=== PATIENT | female | born 1935 | race African-American/Black ===

== ENCOUNTER → 2016-07-22 | Outpatient (CLI) | payer MEDICARE, OTHER ==
[~2016-07-22] VITALS: Ht 154.9 cm; Wt 90.9 kg
[~2016-07-22] MED LIST: ACIDOPHILIS PO; ACIDOPHILUS PO; ACULAR 3 ML3 ML OU; ALEVE 220MG220 MG PO; BUMETANIDE0.5 MG PO; COMPLETE SENIOR1 TA1 PO; DUREZOL 5 ML5 ML OU; FERROUS SU325 MG/TAB PO; FISH OIL1000 MG PO; FOLIC ACID 40400 MCG PO; GLUCOPHAGE500 MG/TAB PO; GLYBURIDE2.5 MG PO; JANUVIA25 MG PO; LASIX 20MG TABL20 MG PO; LOPRESSOR100 MG PO; METFORMIN500 MG PO; NEXIUM 40MG40 MG PO; NORVASC 10MG10 MG PO; PHENERGAN W/CO120 M1 PO; RESOURCE BENEFI1 PDR PO; VITAMIN C BUFF500 MG PO
[2016-07-22 09:28] VITALS: BP 154/73; PULSE 64
[2016-07-22 10:20] VITALS: BP 188/73; PULSE 63
== END ==
LOC: COL.RAD 09:00
DX: M48.06 Spinal stenosis, lumbar region (principal); M46.86 Other specified inflammatory spondylopathies, lumbar region
CPT/HCPCS: J3301

== ENCOUNTER → 2016-11-19 | Outpatient (CLI) | payer MEDICARE, OTHER | LOC: COL.RAD 08:17 | DX: K21.9 Gastro-esophageal reflux disease without esophagitis (principal) ==

== ENCOUNTER → 2017-01-07 | Outpatient (CLI) | payer MEDICARE, OTHER | LOC: COL.RAD 08:27 | DX: M54.40 Lumbago with sciatica, unspecified side (principal) | CPT/HCPCS: J3301 ==

== ENCOUNTER → 2017-04-07 | Outpatient (CLI) | payer MEDICARE, OTHER | LOC: MC.RAD 07:54 | DX: Z12.31 Encounter for screening mammogram for malignant neoplasm of breast (principal) ==

== ENCOUNTER 2017-07-28 07:24 | Outpatient (CLI) | payer MEDICARE, OTHER ==
[~2017-07-28] VITALS: Ht 154.9 cm; Wt 90.9 kg
[2017-07-28] VITALS (17 sets, daily range): BP systolic 111–155; BP diastolic 60–83; PULSE 66–89
[~2017-07-28 07:24] MED LIST changes: +ALIGN PO; +FIBERCON PO; +MULTIVITAMIN SEN PO; -RESOURCE BENEFI1 PDR PO
== END 2017-07-28 15:00 | disposition home or self-care (01) ==
LOC: COL.RAD 07:24
DX: R91.8 Other nonspecific abnormal finding of lung field (principal); J95.811 Postprocedural pneumothorax
CPT/HCPCS: 25581

== ENCOUNTER → 2017-08-31 | Outpatient (CLI) | payer MEDICARE, OTHER | LOC: COL.PUL 09:25 | DX: R10.11 Right upper quadrant pain (principal); C34.2 Malignant neoplasm of middle lobe, bronchus or lung; I10 Essential (primary) hypertension ==

== ENCOUNTER 2017-09-03 10:42 | Day surgery (SDC) | payer MEDICARE, OTHER ==
[~2017-09-03] VITALS: Ht 154.9 cm; Wt 93.4 kg
[~2017-09-03 10:42] MED LIST changes: -GLUCOPHAGE500 MG/TAB PO; +GLUCOPHAGE850 MG/TAB PO; +JANUVIA 100MG100 MG PO; -JANUVIA25 MG PO
[2017-09-03] MEDS ORDERED: TEMOVATE0.05% TP (11:07)
[2017-09-03] MEDS ORDERED: ACUVAIL 0.4 ML0.4 ML OP (11:08)
[2017-09-03 11:25] VITALS: BP 143/58; PULSE 64; TEMP 97.9
[2017-09-03 13:25] VITALS: BP 127/60; PULSE 78; TEMP 98.2
[2017-09-03 13:40] VITALS: BP 133/54; PULSE 69
[2017-09-03 13:55] VITALS: BP 114/55; PULSE 72
[2017-09-03 14:10] VITALS: BP 115/52; PULSE 73
[2017-09-03 15:02] VITALS: BP 124/65; PULSE 80
== END 2017-09-03 14:25 | disposition home or self-care (01) ==
LOC: SDCO 10:42
DX: C34.2 Malignant neoplasm of middle lobe, bronchus or lung (principal); E66.9 Obesity, unspecified; E78.5 Hyperlipidemia, unspecified; I25.10 Atherosclerotic heart disease of native coronary artery without angina pectoris; G47.33 Obstructive sleep apnea (adult) (pediatric); M19.90 Unspecified osteoarthritis, unspecified site; I12.9 Hypertensive chronic kidney disease with stage 1 through stage 4 chronic kidney disease, or unspecified chronic kidney disease; E11.22 Type 2 diabetes mellitus with diabetic chronic kidney disease; N18.9 Chronic kidney disease, unspecified; K21.9 Gastro-esophageal reflux disease without esophagitis; Z90.710 Acquired absence of both cervix and uterus; Z90.49 Acquired absence of other specified parts of digestive tract; Z79.84 Long term (current) use of oral hypoglycemic drugs; Z88.3 Allergy status to other anti-infective agents; Z96.653 Presence of artificial knee joint, bilateral; Z87.891 Personal history of nicotine dependence
CPT/HCPCS: J2704; J7030

== ENCOUNTER → 2018-04-21 | Outpatient (CLI) | payer MEDICARE, OTHER ==
[~2018-04-21] MED LIST changes: +ACUVAIL 0.4 ML0.4 ML OP; +TEMOVATE0.05% TP
== END ==
LOC: MC.RAD 08:53
DX: Z12.31 Encounter for screening mammogram for malignant neoplasm of breast (principal)

== ENCOUNTER → 2019-05-16 | Outpatient (CLI) | payer MEDICARE, OTHER | LOC: MC.RAD 08:21 | DX: Z12.31 Encounter for screening mammogram for malignant neoplasm of breast (principal); N64.89 Other specified disorders of breast ==

== ENCOUNTER → 2019-05-22 | Outpatient (CLI) | payer MEDICARE, OTHER | LOC: MC.RAD 09:35 | DX: N64.89 Other specified disorders of breast (principal) ==

== ENCOUNTER → 2019-12-05 | Outpatient (CLI) | payer MEDICARE, OTHER | LOC: MC.RAD 12:49 | DX: N63.21 Unspecified lump in the left breast, upper outer quadrant (principal) | CPT/HCPCS: G0279 ==

== ENCOUNTER → 2020-05-21 | Outpatient (CLI) | payer MEDICARE, OTHER | LOC: MC.RAD 10:15 | DX: Z12.31 Encounter for screening mammogram for malignant neoplasm of breast (principal) ==

== ENCOUNTER → 2020-06-20 | Outpatient (CLI) | payer MEDICARE, OTHER ==
[~2020-06-20] VITALS: Ht 154.9 cm; Wt 93.9 kg
[~2020-06-20] MED LIST changes: +METHOTREXA2.5 MG/TAB PO
[2020-06-20 09:21] VITALS: BP 161/82; PULSE 82
[2020-06-20 10:33] VITALS: BP 144/67; PULSE 75
== END ==
LOC: COL.RAD 08:59
DX: M48.061 Spinal stenosis, lumbar region without neurogenic claudication (principal)
CPT/HCPCS: J3301

== ENCOUNTER → 2020-07-12 | Outpatient (CLI) | payer MEDICARE, OTHER | LOC: COL.RAD 14:11 | DX: M46.1 Sacroiliitis, not elsewhere classified (principal) | CPT/HCPCS: G0260; J3301 ==

== ENCOUNTER → 2020-08-05 | Outpatient (CLI) | payer MEDICARE, OTHER | LOC: COL.RAD 12:29 | DX: M47.816 Spondylosis without myelopathy or radiculopathy, lumbar region (principal); Z90.710 Acquired absence of both cervix and uterus ==

== ENCOUNTER → 2021-01-01 | Outpatient (CLI) | payer MEDICARE, OTHER | LOC: MHCPAIN 09:38 | DX: M47.816 Spondylosis without myelopathy or radiculopathy, lumbar region (principal); M54.16 Radiculopathy, lumbar region; M53.3 Sacrococcygeal disorders, not elsewhere classified | CPT/HCPCS: G0463 ==

== ENCOUNTER → 2021-05-29 | Outpatient (CLI) | payer MEDICARE, OTHER | LOC: MC.RAD 10:05 | DX: Z12.31 Encounter for screening mammogram for malignant neoplasm of breast (principal) ==

== ENCOUNTER 2021-06-12 18:57 | Emergency (ER) | payer MEDICARE, OTHER ==
[~2021-06-12] VITALS: Ht 154.9 cm; Wt 91.4 kg
[2021-06-12 19:07] VITALS: TEMP 98.5
[2021-06-12 20:33] VITALS: BP 130/84; PULSE 86
== END 2021-06-12 20:33 | disposition home or self-care (01) ==
LOC: COL.ER 18:57
DX: T50.1X2A Poisoning by loop [high-ceiling] diuretics, intentional self-harm, initial encounter (principal)

== ENCOUNTER 2021-07-30 07:51 | Day surgery (SDC) | payer MEDICARE, OTHER ==
[~2021-07-30] VITALS: Ht 154.9 cm; Wt 92.1 kg
--- NOTE | 2021-07-30 08:29 | NUR ---
Fluid orders recieved from RAFAEL MUSA
--- NOTE | 2021-07-30 08:50 | NUR ---
RAFAEL ACEVEDO was in to speak with the patient regarding her Anasthesia. The patient thought she would only have local to the affected area and she thought this would not require an IV. [employer] educated the patient as to why Anasthesia would be needed in order to maintain comfort and to identify the extent of her mass. The patient verbalized understanding and acknowledged that she would be recieving Anasthesia, which requires an IV. Her IV was started in her R hand on first attempt with 20g. NS is infusing without difficulty. Blood was obtained from IV start for blood sugar: 156. Call feliz is in her hand. She is currently watching TV with the lights dimmed per request to promot comfort. Side rails x2.
[2021-07-30 09:52] VITALS: BP 131/56; PULSE 74; TEMP 98.6
[2021-07-30] MEDS ORDERED: NORCO 325 MG-51 TAB PO (10:42)
[2021-07-30 11:25] VITALS: BP 122/67; PULSE 78; TEMP 97.1
--- NOTE | 2021-07-30 11:25 | NUR ---
Patient arrived from the PACU after recieving a general anasthesia. Verbal report obtained from JIHAN Boland. Patient is alert and oriented x3. She is tolerating her ice chips well, and expressed a strong desire to go home. The patient was educated about our dishcarge policy, and she verbalized understanding that she has to eat something, drink somthing and void prior to leaving. Call feliz is on her lap. She is watching TV with the lights on. Denies pain. Vitals obtained and are WNL. Patient has a mild cough. The RN educated her on the importance of coughing and deep breathing to help prevent pneumonia and increase gas exchange. The patient verbalized understanding. Side rails x2.
[2021-07-30 11:40] VITALS: BP 132/47; PULSE 77
--- NOTE | 2021-07-30 11:40 | NUR ---
Vitals obtained. Patient is tolerating her water and crackers well. Denies neusea. No vomiting. Patient was assisted to bedside, where she sat for a few minutes before ambulating to the bathroom. The patient was able to void. Then back to bed for another set of vitals. Call feliz is within reach.
[2021-07-30 11:55] VITALS: BP 155/88; PULSE 80
--- NOTE | 2021-07-30 11:55 | NUR ---
Vitals obtained. IV was discontinued. Catheter tip intact. Pressure dressing applied. No swelling or redness noted. DC instructions and educational material was reviewed. The patient verbalized understanding and signed the related paperwork. The patient deneied needing assistance changing into her personal clothes. Call feliz is within reach if needed.
--- NOTE | 2021-07-30 12:05 | NUR ---
Patient used the call feliz to notify the RN that her ride is here.
--- NOTE | 2021-07-30 12:15 | NUR ---
The [facility]. The patient has her personal belongings and DC packet in hand. She was transferred into the care of Jenae, who is present to drive. The patient denied having any questions or concerns.
[2021-07-30 17:53] VITALS: BP 122/67; PULSE 81; TEMP 97.1
== END 2021-07-30 12:15 | disposition home or self-care (01) ==
LOC: SDCO 07:51
DX: D17.1 Benign lipomatous neoplasm of skin and subcutaneous tissue of trunk (principal); I10 Essential (primary) hypertension; I25.10 Atherosclerotic heart disease of native coronary artery without angina pectoris; M19.90 Unspecified osteoarthritis, unspecified site; E11.9 Type 2 diabetes mellitus without complications; K21.9 Gastro-esophageal reflux disease without esophagitis; G89.29 Other chronic pain; M54.9 Dorsalgia, unspecified; Z85.118 Personal history of other malignant neoplasm of bronchus and lung; Z79.1 Long term (current) use of non-steroidal anti-inflammatories (NSAID); Z79.899 Other long term (current) drug therapy; Z79.84 Long term (current) use of oral hypoglycemic drugs
CPT/HCPCS: J0330; J0690; J1100; J2405; J2704; J3010; J7030

== ENCOUNTER → 2022-07-17 | Outpatient (CLI) | payer MEDICARE, OTHER ==
[~2022-07-17] MED LIST changes: +NORCO 325 MG-51 TAB PO
== END ==
LOC: MC.RAD 09:11
DX: Z12.31 Encounter for screening mammogram for malignant neoplasm of breast (principal)